=== PATIENT | female | born 1995 | race Two or more races ===

== ENCOUNTER 2023-07-06 14:18 | Emergency (ER) | payer OTHER ==
[~2023-07-06] VITALS: Ht 160 cm; Wt 45.4 kg
[2023-07-06] MEDS ORDERED: WELLBUTRIN SR100 MG PO (14:32)
[2023-07-06] MEDS ORDERED: SPRINTEC 28 DA1 EACH PO (14:32)
[2023-07-06] MEDS ORDERED: METOCLOPRAMIDE HCL 5 MG/ML VIAL IM ONE (15:00)
[2023-07-06] MEDS ORDERED: MEPERIDINE HCL/PF 50 MG/ML VIAL IM ONE (15:15)
[2023-07-06 15:53] LABS: HEMATOCRIT 39.6 % (36.0-45.00); HEMOGLOBIN 13.7 g/dL (12.0-15.00); MEAN CELL VOLUME 86.6 fL (80.00-100.00); MEAN CORPUSCULAR HEMOGLOBIN 29.9 pg (27.00-32.0); MEAN CORPUSCULAR HGB CONC 34.5 g/dl (32.0-36.0); PLATELET COUNT 330 K/uL (150-450); RED BLOOD COUNT 4.57 M/uL (4.00-6.00)
[2023-07-06 16:16] LABS: ALBUMIN 4.4 gm/dL (3.4-5.0); BILIRUBIN TOTAL 0.71 mg/dL (0.3-1.2); CALCIUM 9.7 mg/dL (8.5-10.1); CREATININE SERUM 0.96 mg/dL (0.55-1.02); GFR 70.25; GLOBULINA 4.5 G/DL (2.4-3.5); POTASSIUM 4.08 mEq/L (3.5-5.1); TOTAL PROTEIN 8.9 gm/dL (6.4-8.2)
[2023-07-06 16:20] LABS: INR 1.02; PARTIAL THROMBOPLASTIN TIME 27.1 SECONDS (22.0-34.0); PROTHROMBIN TIME 10.7 SECONDS (9.0-11.5)
[2023-07-06] MEDS ORDERED: ONDANSETRON 4 MG TAB.RAPDIS PO ONE (20:15)
[2023-07-06] MEDS ORDERED: BUTALB/ACETAMINOPHEN/CAFFEINE 1 TAB TABLET PO ONE (20:15)
[2023-07-06 23:53] LABS: URINE APPEARANCE Cloudy; URINE BILIRRUBIN Negative (NEGATIVE); URINE BLOOD Negative; URINE COLOR Yellow; URINE GLUCOSE Negative (NEGATIVE); URINE LEUKOCYTE Negative; URINE NITRATE Negative; URINE PROTEIN Trace (NEGATIVE)
[2023-07-06 23:56] LABS: URINE BACTERIA 1743.7 uL (0.0-1933); URINE EPITHELIAL CELLS 51.6 uL (0.0-38.8); URINE WBC 17.1 uL (0.0-23.2)
== END 2023-07-07 01:23 | disposition home or self-care (01) ==
LOC: ER 14:18
PROVIDERS: General Practice
DX: R51.9 Headache, unspecified (principal); Z20.822 Contact with and (suspected) exposure to COVID-19
CPT/HCPCS: 70545; 70551